=== PATIENT | male | born 1990 | race Caucasian/White ===

== ENCOUNTER 2021-06-27 23:25 | Emergency (ER) | payer SELFPAY ==
--- NOTE | 2021-06-27 23:40 | ED_ITS ---
HPI - Dental/Oral General Chief complaint: Dental/Oral Stated complaint: dental pain Time Seen by Provider: 06/27/21 23:40 Source: patient Mode of arrival: ambulatory Limitations: no limitations History of Present Illness MD Complaint: tooth pain Location: Tooth # (6) Onset (ago): day(s) (3) Duration: intermittent Severity: moderate Relieving factors: nothing Exacerbating factors: chewing Context: other Associated symptoms: ear pain and other (jaw pain) Treatment prior to arrival: other (ibuprofen) Related Data Previous Rx's Medication Instructions Recorded amoxicillin 875 mg-potassium 1 tab PO BID #14 tab 06/28/21 clavulanate 125 mg tablet (Augmentin) cyclobenzaprine 10 mg tablet 10 mg PO TID PRN #14 tab 06/28/21 Allergies Allergy/AdvReac Type Severity Reaction Status Date / Time No Known Allergies Allergy Unverified 02/15/20 16:25 Review of Systems Verdana 4l Review of Systems: Verdana 4d Verdana 4d Constitutional : No Fever, No Chills ENT/Mouth : No swallowing difficulty, no change in voice, positive dental pain, positive jaw pain, no facial swelling, pos ear pain Eyes: No Eye Pain, No Swelling Cardiovascular : No Chest Pain, No SOB Respiratory : No Cough, No Sputum Gastrointestinal : No Nausea, No Vomiting, No Diarrhea Genitourinary : No Dysuria Musculoskeletal : No Myalgias Skin : No rash Neuro : No Weakness, No Numbness, No Headache PMFSH Past Medical History Attestation statement: The following information was validated with the patient. Medical History Murmur, heart Surgical History (Updated 06/27/21 @ 23:46 by Sallie Garcia) History of appendectomy Social History Social History (Updated 06/28/21 @ 00:18 by Ryanne Alfaro DO) Patient Tobacco Use Status: Never used Tobacco Advance Directives: No Physical Exam Verdana 4l Vital Signs: Verdana 4d Verdana 4d Vital Signs: Verdana 4d Verdana 4Bd Last Vital Signs Verdana 4d Horse Exerciser New 4d Horse Exerciser New 4d Temp 98.0 F 06/27/21 23:43 Horse Exerciser New 4d Pulse 73 06/27/21 23:43 Horse Exerciser New 4d Resp 17 06/27/21 23:43 BP 131/49 L 06/27/21 23:43 Pulse Ox 97 06/27/21 23:43 BMI result Body Mass Index 33.9 Appearance: Alert. Oriented X3. No acute distress. Eyes: Pupils equal, round and reactive to light. ENT: R TM bulging with effusion no perforation mild erythema, R TMJ joint clicking and pain noted with opening jaw, upper R canine ttp and mild fluctuance of gum no abscess no trismus Neck: Normal inspection. Neck supple. CVS: Normal heart rate and rhythm. Pulses normal. Respiratory: No respiratory distress. Abdomen: Soft and nontender. Skin: Skin warm and dry. Normal skin color. Normal skin turgor. Extremities: No lower extremity edema. Neuro: Oriented X 3. No motor deficit. No sensory deficit. MDM - Dental/Oral MDM Narrative Medical decision making narrative: 30 yo male with no sig PMH here with sided jaw pain waking up with sore jaw likely TMJ but also with mild R ear AOM, and R upper canine gum fluctuance no concern for deeper space infection no trismus at this time will start on flexeril, mouth guard and augmentin - instructed to follow up with dentist Discharge Plan Discharge Clinical Impression: Toothache, Temporomandibular joint syndrome Otitis media Qualifiers: Otitis media type: suppurative Chronicity: acute Laterality: right Recurrence: non-recurrent Spontaneous tympanic membrane rupture: without spontaneous rupture Qualified Code(s): H66.001 - Acute suppurative otitis media without spontaneous rupture of ear drum, right ear Patient Disposition: Home, Self-Care Instructions: Ear Infection (ED), Temporomandibular Disorder (ED), Toothache (ED) Additional Instructions: return to ED for any worsening symptoms or concerns wear a mouth guard at night follow up with dentist eat yogurt with antibiotic or take probiotic as it can cause diarrhea Prescriptions: New cyclobenzaprine 10 mg tablet 10 mg PO TID PRN (Reason: muscle spasm) Qty: 14 0RF amoxicillin-pot clavulanate [Augmentin] 875-125 mg tablet 1 tab PO BID Qty: 14 0RF Stand Alone Forms: Work/School Release
[2021-06-27 23:43] VITALS: BP 131/49; PULSE 73; RESP 17; TEMP 36.7; O2SAT 97; BMI 33.9
[2021-06-28] MEDS: Cyclobenzaprine HCl 10 MG TABLET PO (00:06)
[2021-06-28] MEDS: Amoxicillin/Potassium Clav 875 MG TABLET PO (00:06)
== END 2021-06-28 00:18 | disposition home or self-care (01) ==
LOC: HO.ED 06-28 00:17
PROVIDERS: Emergency Provider Emergency Medicine
DX: K08.89 Other specified disorders of teeth and supporting structures (principal); H66.001 Acute suppurative otitis media without spontaneous rupture of ear drum, right ear; M26.601 Right temporomandibular joint disorder, unspecified
CPT/HCPCS: 99283; 99284

== ENCOUNTER 2023-07-26 09:45 | Emergency (ER) | payer MEDICAID, SELFPAY ==
[2023-07-26 10:06] VITALS: BP 112/62; PULSE 114; RESP 16; TEMP 37; O2SAT 99; BMI 35.3
[2023-07-26 11:07] LABS: IDNOW Serial# 08D9AD1C; Strep A Nucleic Acid Positive (Negative)
[2023-07-26 11:10] LABS: COVID-19 Test Negative (Negative); IDNOW Serial# 152EDE1D
[2023-07-26 11:15] LABS: IDNOW Serial# 9DB6401D; Influenza A Negative (Negative); Influenza B2 Negative (Negative)
--- NOTE | 2023-07-26 12:07 | ED.GENADULT ---
HPI - General Adult General Chief complaint: Upper Respiratory Symptoms Stated complaint: fever lump in throat swelling Time Seen by Provider: 07/26/23 12:07 Source: patient Mode of arrival: ambulatory Limitations: no limitations History of Present Illness HPI narrative: 32 year old male with no significant pmhx presents to the ED today for evaluation of sore throat, congestion and body aches x1 day. Denies difficulty controlling secretions/ swallowing. Admits his daughter at home tested positive for strep throat. Denies fevers, chills, N/V, chest pain, SOB, dyspnea, LE pain/swelling. UTD on vaccinations. Related Data Previous Rx's Medication Instructions Recorded amoxicillin 875 mg-potassium 1 tab PO BID #14 tabs 06/28/21 clavulanate 125 mg tablet (Augmentin) cyclobenzaprine 10 mg tablet 10 mg PO TID PRN muscle spasm #14 06/28/21 tabs benzocaine 15 mg-menthol 2.6 mg 1 tabby mucous membrane Q2-4H PRN 07/26/23 lozenges (Cepacol Sore Throat sore throat #16 ea (benzocaine-menthol)) penicillin V potassium 500 mg 500 mg PO BID 10 days #20 tabs 07/26/23 tablet Allergies Allergy/AdvReac Type Severity Reaction Status Date / Time No Known Allergies Allergy Unverified 02/15/20 16:25 Review of Systems Review of Systems: Constitutional: No fever, chills, fatigue, night sweats, weight changes ENT/Mouth: No ear pain, hearing loss, nasal congestion, sinus pain, rhinorrhea, +sore throat, +odynophagia, No dysphagia Eyes: No eye pain, swelling, redness, vision changes, discharge Cardio: No chest pain, palpitations, CAMEJO, orthopnea, peripheral edema Pulm: No SOB, cough, sputum, wheezing, dyspnea, hemoptysis GI: No nausea, vomiting, hematemesis, abdominal pain, diarrhea, constipation, hematochezia, melena : No irregular bleeding, dysuria, frequency, urgency, hesitancy, hematuria, flank pain MSK: No back pain, neck pain, joint pain, myalgias Skin: No lesions, rashes Neuro: No weakness, numbness, paresthesias, LOC, dizziness, headache All other systems reviewed and are negative. [facility] Past Medical History Attestation statement: The following information was validated with the patient. Source: old records reviewed and nursing notes reviewed Medical History Murmur, heart Surgical History History of appendectomy Social History Social History Patient Tobacco Use Status: Never used Tobacco Advance Directives: No Advance Directives Information Provided: No Physical Exam ED Vital Signs: Vital Signs - 24 hr 07/26/23 10:06 Temperature 98.6 F Pulse Rate 114 H Respiratory Rate 16 Blood Pressure 112/62 Pulse Oximetry 99 Oxygen Delivery Method Room Air BMI result Body Mass Index 35.3 Vital signs stable, afebrile Const General: cooperative, healthy appearing, comfortable, no acute distress, alert and awake Orientation/consciousness: patient oriented x3 Limitations: no limitations HENMT Other: + posterior oropharynx erythematous, no edema, uvula is midline, no tonsilar exudates or peritonsillar masses, controlling secretions and speaking in complete sentences. airway patent. Head: Yes normal to inspection, Yes normocephalic and Yes atraumatic Ears: hearing grossly normal bilaterally, external ears normal, TM's normal bilaterally, EAC's normal, mastoids normal and no periauricular adenopathy General nose exam: Normal external nose present and No nasal discharge present Face and sinus: Yes normal facial exam and Yes sinuses nontender Eyes General: appearance normal, both eyes and all related structures Conjunctivae: conjunctivae normal Sclerae: sclerae normal Pupils: Equal, round and reactive pupils present Neck Other: + no cervical, submandibular or submental LAD. Neck: Yes normal visual inspection and Yes full ROM Resp Effort & Inspection: normal respiratory effort and able to speak in complete sentences Auscultation: clear to auscultation bilaterally Cardio Rate: regular rate Rhythm: regular rhythm Skin General skin exam: no rashes or lesions noted Neuro General: patient oriented x3 and gait normal Cranial nerves: Yes Equal, round and reactive pupils present Extrem General: Yes normal to inspection Course Course Course Narrative: 1216-- Patient tested positive for strep throat. He tested negative for covid and flu. he is well appearing and afebrile. > discussed results with patient. penicillin and cepacol throat lozenges sent to pharmacy. Patient has remained stable throughout ED visit today. Discussed worrisome signs and symptoms and when to return to the ED. All questions answered at this time. Patient is agreeable with disposition and stable for discharge. Medical Decision Making Medical Decision Making [facility] Narrative: 32 year old male with no significant pmhx presents to the ED today for evaluation of sore throat, congestion and body aches x1 day. Patient is nontoxic appearing and in NAD. Bilateral EACs and TMs WNL. Posterior oropharynx erythematous, no edema. No tonsillar exudates. Uvula midline. Speaking in complete sentences and controlling secretions. Lungs CTA bilaterally. No cervical LAD or anterior neck swelling. No stridor or muffled voice. Differential diagnosis includes strep throat, viral syndrome. Less likely [employer], retropharyngeal abscess, dental abscess, Bowen's angina, pneumonia. Plan for serology, strep swab and re-evaluation. Differential Diagnosis Differential Diagnoses: The differential diagnosis associated with the presentation includes as above. Admission/Observation Not indicated Lab Data [facility] Lab Attestation statement: I reviewed the patient's lab results. as above Labs: Lab Results 07/26/23 Range/Units 10:51 COVID-19 (JESSICA) Negative (Negative) COVID-19 Clin Com See Note Influenza Type A (BETSEY) Negative (Negative) Influenza Type B (BETSEY) Negative (Negative) Influenza A & B Note See Note S. pyogenes GrpA BETSEY Positive A (Negative) External Record Review External record reviewed: Inpatient record Prescription Management I considered prescription management with: Pain Medication and Antibiotic (Penicillin) Social Determinants Patient?s care significantly limited by Social Determinants of Health including: Other Social Determinant of Health Critical Care Time Critical Care Time Critical Care Time: No Discharge Plan Discharge Clinical Impression: Acute streptococcal pharyngitis Patient Disposition: Home, Self-Care Instructions: Pharyngitis (ED), Strep Throat (ED) Additional Instructions: You were seen in the ED today for evaluation of sore throat. You tested negative for covid and influenza. You tested positive for strep throat. Penicillin is an antibiotic that has been sent to your pharmacy. Take this twice daily for the next 10 days to treat strep throat. Do not stop taking these antibiotics early or miss any doses as this may cause infection to return or worsen. Cepacol throat lozenges have been sent to your pharmacy to help with throat pain. You may also purchase [id number] chloraseptic spray to numb your throat. Take Tylenol and ibuprofen as needed for body aches or fevers. Make sure to change your toothbrush as this contains bacteria. Strep throat is contagious. If anyone else in your household is exhibiting symptoms, please advise them to come to the ED, urgent care, or to see their primary care provider. Follow up with your primary care provider as needed. Return to the emergency department if your symptoms persist or worsen despite treatment or if you have difficulty swallowing, opening your mouth, or develop a rash. In the case of emergency, call 911.? Prescriptions: New penicillin V potassium 500 mg tablet 500 mg PO BID 10 Days Qty: 20 0RF Cepacol Sore Throat (mary beth-men) 15-2.6 mg lozenge 1 tabby mucous membrane Q2-4H PRN (Reason: sore throat) Qty: 16 0RF No Action cyclobenzaprine 10 mg tablet 10 mg PO TID PRN (Reason: muscle spasm) Qty: 14 0RF amoxicillin-pot clavulanate [Augmentin] 875-125 mg tablet 1 tab PO BID Qty: 14 0RF Stand Alone Forms: Work/School Release Interventions: ED Discharge Assessment Last Done: 07/26/23 12:23 Discharge Date/Time: 07/26/23 12:23
== END 2023-07-26 12:23 | disposition home or self-care (01) ==
PROVIDERS: Emergency Provider Emergency Medicine
DX: J02.0 Streptococcal pharyngitis (principal); Z11.52 Encounter for screening for COVID-19
CPT/HCPCS: 87502; 87635; 87651; 99282; 99283

== ENCOUNTER 2024-09-04 18:12 | Emergency (ER) | payer OTHER, SELFPAY ==
--- NOTE | ~2024-09-04 | XR_ITS ---
CLINICAL HISTORY: back pain 3 views lumbar spine Comparison: None Findings: Normal alignment. No acute fractures or dislocation. Straightening of normal lumbar lordosis. Mild two moderate spondylosis at L5-S1 predominantly with facet arthropathy. IMPRESSION: No acute findings. Auat-[id number] spondylosis at L5-S1 predominantly with facet arthropathy. This document has been electronically signed by: hSiva Carreon MD on 09/04/2024 19:50:12
[2024-09-04 18:41] VITALS: BP 123/76; PULSE 67; RESP 16; TEMP 36.9; O2SAT 100; BMI 35.3
--- NOTE | 2024-09-04 18:45 | ED_ITS ---
HPI - General Adult General Chief complaint: Back Pain/Injury Stated complaint: lower back pain radiating down both legs Time Seen by Provider: 09/04/24 22:03 Source: patient Mode of arrival: ambulatory Limitations: no limitations History of Present Illness ED Provider: DR. Rendon HPI narrative: 33-year-old male came in for evaluation of back pain radiating to both legs right more than left, patient had a history of low back injury while he was in [employer] service training that happened last year, since the injury patient been experiencing intermittent low back pain with radiation to both lower extremities today patient has not exacerbation of low back pain that radiating to the right lower extremity, no numbness, no weakness, no urinary incontinence, no stool incontinence, able to ambulate as he normally does. 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 Currently patient describes the pain as 7/10. With some radiation to right lower extremity. Related Data Previous Rx's ?Medication ?Instructions ?Recorded amoxicillin 875 mg-potassium 1 tab PO BID #14 tabs 06/28/21 clavulanate 125 mg tablet (Augmentin) cyclobenzaprine 10 mg tablet 10 mg PO TID PRN muscle spasm #14 06/28/21 tabs benzocaine 15 mg-menthol 2.6 mg 1 tabby mucous membrane Q2-4H PRN 07/26/23 lozenges (Cepacol Sore Throat sore throat #16 ea (benzocaine-menthol)) penicillin V potassium 500 mg 500 mg PO BID 10 days #20 tabs 07/26/23 tablet Allergies Allergy/AdvReac Type Severity Reaction Status Date / Time No Known Allergies Allergy Verified 09/04/24 18:44 Review of Systems Review of Systems: All other systems are reviewed and are negative Constitutional: Reports as per HPI and Reports no additional constitutional complaints Eyes: Reports as per HPI and Reports no additional eye complaints Reports system reviewed and no additional complaints, except as documented Cardiovascular: Reports as per HPI and Reports no additional cardiovascular complaints Respiratory: Reports as per HPI and Reports no additional respiratory complaints Gastrointestinal: Reports as per HPI and Reports no additional gastrointestinal complaints Genitourinary: Reports no additional female genitourinary complaints Musculoskeletal: Reports no additional musculoskeletal complaints Skin/Breast: Reports system reviewed and no additional complaints, except as docu Psychiatric: Reports no additional psychiatric complaints Endocrine: Reports no additional endocrine complaints Hematologic/Lymphatic: Reports no additional hematologic/lymphatic complaints Allergic/Immunologic: Reports no additional allergic/immunologic complaints Reports system reviewed and no additional complaints, except as documented and Reports Abnormal speech present [facility] Past Medical History Medical History Murmur, heart Surgical History History of appendectomy Social History Social History Patient Tobacco Use Status: Never used Tobacco Advance Directives: No Advance Directives Information Provided: No Do you have a plan to hurt others: No Plan Physical Exam ED Vital Signs: Vital Signs - 24 hr 09/04/24 18:41 09/04/24 22:24 Temperature 98.4 F 98.8 F Pulse Rate 67 64 Respiratory Rate 16 16 Blood Pressure 123/76 119/73 Pulse Oximetry 100 97 Oxygen Delivery Method Room Air Room Air BMI result Body Mass Index 35.3 Vital signs have been reviewed and appear to be correct. Blood pressure elevated. Heart rate normal. Respiratory rate normal. Temperature normal. Oxygen saturation normal. Appearance: Alert. Oriented X3. No acute distress. Head: Normal external exam. Normocephalic. Atraumatic. No Guerrier signs noted. No raccoon eyes noted Eyes: PERRLA. EOMI. Conjunctiva and sclera normal. Eyelids normal. ENT: TM's Normal. Pharynx normal. Uvula midline. Moist mucous membranes. No trismus noted. No drooling noted. No muffled voice noted. Neck: Normal inspection. Neck supple. FROM. No adenopathy. Thyroid Normal. No meningeal signs. No neck mass noted. CVS: Normal heart rate and rhythm. Heart sound normal. No murmurs noted. Pulses normal throughout. Respiratory: No respiratory distress. Painless inspiration. Breath sounds normal. No wheezes/rales/rhonchi noted. Chest nontender. No accessory muscle usage noted or decreased air movement noted. Abdomen: Soft and nontender. Bowel sounds normal in all 4 quadrants. No distention noted. No organomegaly noted. No visible injury noted. Back: No CVA tenderness. Full range of motion noted. Skin: Skin warm and dry. Normal skin color. Normal skin turgor. No rashes/lesions/lacerations noted. Extremities: No lower extremity edema. Extremities exhibit normal range of motion. Extremities nontender. Neuro: Mental status: Normal attention, orientation, memory, and affect. Cranial nerves: Pupils are equal, round and reactive to light, EOMI, visual davidson are fall, face is symmetric, facial sensations are normal. Motor examination normal muscle tone, strength to 4 extremities. DTR are +2, planter's are flexor. Sensory exam; normal perianal sensation, normal coordination, no ataxia, gait stable. Able to ambulate on both toes and heels with some pain when he ambulate on the heels. Cerebellar exam: [id number]-di-[id number] and iadw-su-apfl is normal. Extrapyramidal system: No tremors, no rigidity with normal facial expressions. Pronator drift not present. Course Course Course Narrative: RME: 33-year-old male presents to ED for low back. Radiating down both legs. Patient states pain worse on movement. Patient denies any trauma, urinary/bowel incontinence, genital numbness, or IV drug use. X-ray ordered. Reevaluation(s) Reevaluation #1: 33-year-old male with acute on chronic back pain, no clinical evidence of cauda equina or acute neurological deficit. Patient needs further evaluation by PCP and get an MRI, patient do not have PCP currently applying for having a [facility] insurance. As discussed with the patient take ibuprofen every 6 hours if needed for pain and follow-up with [facility]. Time: 22:15 Medical Decision Making Differential Diagnosis Differential Diagnoses: The differential diagnosis associated with the presentation includes (Cauda equina syndrome, herniated desk, neurological deficit, arthritis for lumbar spine, degenerative disease of the lumbar spine.) Admission/Observation Consideration of admission/observation: Escalation of care including admission/observation considered Independent Interpretation I performed an independent interpretation of an: Plain X-Ray (Lumbar spine:No acute findings. Sxwx-iw-rfeaeice spondylosis at L5-S1 predominantly with facet arthropathy.) Radiology Impression Discussion of test interpretation with radiology: I have reviewed the radiologist's reading. Discharge Plan Discharge Clinical Impression: Lumbar radiculopathy Patient Disposition: Home, Self-Care Instructions: Lumbar Radiculopathy (ED) Additional Instructions: Rest, heating pad, take ibuprofen 200 mg every 6 hours if needed for pain, follow-up with [facility] as instructed. Prescriptions: No Action cyclobenzaprine 10 mg tablet 10 mg PO TID PRN (Reason: muscle spasm) Qty: 14 0RF amoxicillin-pot clavulanate [Augmentin] 875-125 mg tablet 1 tab PO BID Qty: 14 0RF penicillin V potassium 500 mg tablet 500 mg PO BID 10 Days Qty: 20 0RF Cepacol Sore Throat (mary beth-men) 15-2.6 mg lozenge 1 tabby mucous membrane Q2-4H PRN (Reason: sore throat) Qty: 16 0RF Referrals: [facility] [Physician] - Stand Alone Forms: Work/School Release Interventions: ED Discharge Assessment Last Done: 09/04/24 22:24 Discharge Date/Time: 09/04/24 22:30 Print Language: Estonian
--- OUTSIDE RECORDS SUMMARY | 2024-09-04 22:15 | XMS_ITS | Clinical Summary ---
Author Organization [address] [facility] Address [address] [place] [address] Phone Care Team Providers Care Vice Admiral Name Role Phone Nanci Koehler MD Primary Care Provider [phone] Allergies No known active allergies Medications ibuprofen (ADVIL,MOTRIN) 800 mg tablet Take 1 tablet (800 mg total) by mouth every 8 (eight) hours if needed. Active acetaminophen (TYLENOL) 325 mg tablet Take 2 tablets (650 mg total) by mouth every 6 (six) hours if needed for mild pain. Active aspirin 325 mg tablet Take 1 tablet (325 mg total) by mouth 1 (one) time each day. Active oxyCODONE-aceta minophen (PERCOCET) 5-325 mg per tablet Take by mouth. Active Surgical History Surgery Date Site/Laterality Comments KNEE ARTHROSCOPY W/ ACL RECONSTRUCTION Right Right knee ACL reconstruction - Allograft. Plica resection. Social History Tobacco Use Types Packs/Day Years Used Date Smoking Tobacco: Never Assessed Sex and Gender Information Value Date Recorded Sex Assigned at Not on file Legal Sex Male 3:10 PM EST Gender Identity Not on file Sexual Orientation Not on file Obstetrics History Last Filed Vital Signs Vital Sign Reading Time Taken Comments Blood Pressure - - Pulse - - Temperature - - Respiratory Rate - - Oxygen Saturation - - Inhaled Oxygen Concentration - - Weight 118 kg (260 lb) 04/07/2024 11:13 AM EST Height 182.9 cm (6') 04/07/2024 11:13 AM EST Body Mass Index 35.26 04/07/2024 11:13 AM EST Plan of Treatment Health Maintenance Due Date Last Done Comments Hepatitis B Vaccines (1 of 3 - 19+ 3-dose series) 10/09/2011 COVID-19 Vaccine ( - 2023-2 5 season) 2024 Influenza Vaccine (#1) 2024 05/08/2022 Depression Screening 03/01/2024 HIV Screening 03/01/2024 Hepatitis C Screening 03/01/2024 Social Influencers of Health Screening 03/01/2024 DTaP,Tdap,and Td Vaccines (2 - Td or Tdap) 08/30/2026 08/30/2016 HIB Vaccines Aged Out No longer eligi ble based on patient's age to complete this topic HPV Vaccines Aged Out No longer eligi ble based on patient's age to complete this topic Hepatitis A Vaccines Aged Out No long er eligible based on patient's age to complete this topic IPV Vaccines Aged Out No longer eligi ble based on patient's age to complete this topic MMR Vaccines Aged Out No longer eligi ble based on patient's age to complete this topic Meningococcal ACWY Vaccine Aged Out N o longer eligible based on patient's age to complete this topic Meningococcal B Vaccine Aged Out No l onger eligible based on patient's age to complete this topic Pneumococcal Vaccine: Pediat rics (0 to 5 Years) and At-Risk Patients (6 to 64 Years) Aged Out No longer eligi ble based on patient's age to complete this topic RSV Immunization Patients Un teena 20 months Aged Out No longer eligible b ased on patient's age to complete this topic Varicella Vaccines Aged Out No longer eligible based on patient's age to complete this topic Insurance [facility] Care Teams Vice Admiral Relationship Specialty Start Date End Date Nanci Koehler MD [facility] , [address] Physician Associ D/B/A: [facility] HOWIE Green PCP - General Internal Medicine 03/28/24
--- OUTSIDE RECORDS SUMMARY | 2024-09-04 22:15 | XMS_ITS | Encounter Summary ---
Author Organization [facility] Address [address] [place] [address] Care Team Providers Care Extension Division Director Name Role Phone Nanci Koehler MD Primary Care Provider Encounter Details Date Type Department Care Team (Late st Contact Info) Description 03/28/2024 10:30 AM EDT Hospital Encounter TH HISTORIC ENCOUNTERS EASTERN CONVERSION ONLY Polo Bejarano MD [address] [facility] [address] [place] [address] Social History Tobacco Use Types Packs/Day Years Used Date Smoking Tobacco: Never Assessed Sex and Gender Information Value Date Recorded Sex Assigned at Not on file Legal Sex Male 3:10 PM EST Gender Identity Not on file Sexual Orientation Not on file documented as of this encounter Plan of Treatment Not on file documented as of this encounter Visit Diagnoses Not on filedocumented in this encounter Care Teams Extension Division Director Relationship Specialty Start Date End Date Nanci Koehler MD [address] [facility] , [address] [facility] HOWIE Green PCP - General Internal Medicine 03/28/24 documented as of this encounter
[2024-09-04 22:24] VITALS: BP 119/73; PULSE 64; RESP 16; TEMP 37.1; O2SAT 97
== END 2024-09-04 22:30 | disposition home or self-care (01) ==
PROVIDERS: Emergency Provider Emergency Medicine
DX: M54.16 Radiculopathy, lumbar region (principal); M54.50 Low back pain, unspecified; M79.605 Pain in left leg; M79.604 Pain in right leg
CPT/HCPCS: 72100; 99282; 99283

== ENCOUNTER → 2024-09-04 18:45 | Outpatient (BNV) | payer MEDICAID, SELFPAY | PROVIDERS: Visit Provider Student in an Organized Health Care Education/Training Program | DX: M47.817 Spondylosis without myelopathy or radiculopathy, lumbosacral region (principal); M46.96 Unspecified inflammatory spondylopathy, lumbar region | CPT/HCPCS: 72100 ==